=== PATIENT | male | born 1975 | race Caucasian/White ===

== ENCOUNTER 2019-04-10 19:57 | Emergency (ER) | payer OTHER ==
[~2019-04-10] VITALS: Ht 180.3 cm; Wt 120.2 kg
[2019-04-10 21:23] LABS: Basophils # (auto) 0.1 uL; Eosinophils # (auto) 0.1 uL; Hematocrit 43.9 % (41.0-53.0); Hemoglobin 14.9 g/dL (13.5-17.5); Lymphocytes # (auto) 1.6 uL; Lymphocytes % (auto) 16.5 % (10.0-50.0); Mean Corpuscular Hemoglobin 28.8 pg (28.0-32.0); Mean Corpuscular Volume 84.7 fL (80.0-100.0); Monocytes # (auto) 0.8 uL; Monocytes % (auto) 8.4 % (0.0-12.0); Neutrophils # (auto) 6.9 uL; Neutrophils % (auto) 73.1 % (37.0-80.0); Nucleated Red Blood Cells % 0.1 %; Platelet Count (auto) 289 10^3/uL (140-450); Red Blood Cells 5.18 10^6/uL (4.5-5.90); Red Cell Distribution Width 12.5 % (11.8-14.3); White Blood Cell 9.5 10^3/uL (4.4-10.8)
[2019-04-10 21:40] LABS: Albumin 4.4 g/dL (3.4-5.0); Calcium 9.7 mg/dL (8.5-10.1); Potassium 4.2 mmol/L (3.5-5.1)
[2019-04-10 21:44] LABS: BUN/Creatinine Ratio 13.5; Bilirubin, Total 0.4 mg/dL (0.2-1.0); Total Protein 8.5 g/dL (6.4-8.2)
[2019-04-11 00:12] VITALS: BP 140/86
[2019-04-11] MEDS ORDERED: SODIUM CHLORIDE 0.9% 1,000 ML IV ONE (00:15)
== END 2019-04-11 01:35 | disposition home or self-care (01) ==
LOC: EEVIPCON 20:04 → ER 20:04
DX: K29.00 Acute gastritis without bleeding (principal); Z88.2 Allergy status to sulfonamides
CPT/HCPCS: 36415; 74176; 80053; 83690; 85025; 96360; 99284; J7030